=== PATIENT | female | born 1965 | race Caucasian/White ===

== ENCOUNTER → 2018-02-13 | Outpatient (CLI) | payer OTHER ==
[2014-08-07 10:35] VITALS: BMI 39.5
[~2018-02-13] MED LIST: ACE325 PO; AMOX-559 PO; BENZ200C15 PO; BUTA1CAP4 PO; CALCIUM; CLOT30SO6 RIGHT EAR; CYAN100015 PO; ELET40TA; FLUT16SP19 NS; GLUC-232 PO; GUAI120L3 PO; HYDR-385 PO; HYDR-389 PO; HYDR12.556 PO; HYDROCHLOROTHIAZIDE PO; LEVO100T95 PO; LEVO50TA80 PO; LEVO75TA68 PO; LOR5/325 PO; MAGN250T34 PO; METF-410 PO; MULT-1081 PO; NEOM10DR44 RIGHT EAR; OND4; OXYC-865 PO; PER PO; PRED20TA6 PO; PROM-110 PO; RIZA10TA PO; Return to work; VALA100059 PO; VITAMINS
--- NOTE | 2018-02-13 14:53 | RADIOLOGY IMAGING REPORT ---
FACILITY: [facility] - [place] PATIENT NAME: Ella Colindres : 1965 MR: [id number] V: [id number] EXAM DATE: ORDERING PHYSICIAN: NILSA HARRISON TECHNOLOGIST: Location: [facility] Patient: Ella Colindres : 1965 Visit/Account:[id number] Date of Sevice: 02/13/2018 MRI left knee Indication: Left knee injury Comparison: MRI left knee from 05/13/2015. Technique: Multiplanar, multisequence MRI examination is performed of the left knee without contrast. Findings: Medial compartment: There is a complex oblique superior surface tear at the posterior horn medial meniscus. Is also parti al tearing suggested at the posterior root. There is minimal partial-thickness chondral loss and irregularity mid weightbearing medial femoral co ndyle cartilage. Lateral compartment: No discrete tear of the lateral meniscus. The articular cartilage surfaces are unremarkable. Patellofemoral compartment: Mild chondral loss and irregularity median ridge patella cartilage. There is also partial-thickness c hondral loss of the inferior mid trochlear groove cartilage. Bones and marrow: No evidence of abnormal marrow edema. No focal bony lesions. No bony erosions or periostitis. Ligaments and tendons: ACL and PCL are intact. The extensor mechanism is intact. Minimal edema superficial and deep to the MCL suggests mild sprain. The iliotibial band, biceps femoris tendon, and the fibular collateral ligament is intact Mild tendinopathy proximal popliteus tendon. Soft tissues: Minimal fluid seen within the suprapatellar bursa. IMPRESSION: 1. Worsened appearance of a complex medial meniscal tear as described above. 2. Mild chondral loss patellofemoral and medial compartment cartilage. Report Dictated By: Ulises Marquez MD at 02/13/2018 2:45 PM Report E-Signed By: Ulises Marquez MD at 02/13/2018 2:50 PM WSN:[id number]
== END ==
LOC: MRI 00:54
PROVIDERS: ATTEND Orthopaedic Surgery
DX: S83.232A Complex tear of medial meniscus, current injury, left knee, initial encounter (principal); M94.8X8 Other specified disorders of cartilage, other site

== ENCOUNTER → 2018-03-01 | Outpatient (REF) ==
[2014-08-07 10:35] VITALS: BMI 39.5
[2018-03-01 09:31] LABS: LDL CHOLESTEROL 89 mg/dl
== END ==
DX: Z02.9 Encounter for administrative examinations, unspecified (principal)

== ENCOUNTER 2018-03-11 02:38 | Day surgery (SDC) | payer OTHER ==
[2014-08-07 10:35] VITALS: Ht 167.6 cm; Wt 119.7 kg
[~2018-03-11] VITALS: Ht 167.6 cm; Wt 119.7 kg
[~2018-03-11 02:38] MED LIST changes: -METF-410 PO; +METF-411 PO
[2018-03-11] MEDS ORDERED: MIDAZOLAM 2 MG/2 ML VIAL IVP PRN (11:25)
[2018-03-11] MEDS ORDERED: FAMOTIDINE 20 MG TAB PO ONE (11:25)
[2018-03-11] MEDS ORDERED: NORMOSOL R SOLN(*) 1000 ML BAG 1,000 ML IV PRN (11:25)
[2018-03-11] MEDS ORDERED: LIDOCAINE/SOD BICARB 8.4% SYR ID ONE (11:25)
[2018-03-11] MEDS ORDERED: CELECOXIB 200 MG CAP PO ONE (11:25)
[2018-03-11 12:31] VITALS: BP 122/91
[2018-03-11] MEDS: ceFAZolin(*) 2GM/D5W 50ML 50 ML IVPB ONE ×2 (12:35→15:15)
[2018-03-11] MEDS ORDERED: fentaNYL CITR 250 MCG/5 ML AMP ONE (13:38)
[2018-03-11] MEDS ORDERED: PROPOFOL EMUL(*) 10MG/ML 20 ML 20 ML ONE (13:39)
[2018-03-11] MEDS ORDERED: LIDOCAINE 2% IV 100 MG/5ML SYR ONE (13:39)
[2018-03-11] MEDS ORDERED: ROPIVACAINE 0.2% 20 ML VIAL ONE (15:05)
[2018-03-11] MEDS ORDERED: DEXAMETHASONE SOD 4 MG/ML VIAL ONE (15:18)
[2018-03-11] MEDS ORDERED: ONDANSETRON 4 MG/2 ML VIAL ONE (15:19)
[2018-03-11] MEDS ORDERED: fentaNYL CITR 100 MCG/2 ML AMP ONE (16:07)
[2018-03-11] MEDS ORDERED: PROMETHAZINE 25 MG/ML 1 ML AMP ONE (16:30)
[2018-03-11] MEDS ORDERED: APAP/HYDROCODONE 325/7.5 TAB ONE ×2 (17:23→17:59)
[2018-03-11 17:45] VITALS: BP 122/81
[2018-03-11 18:00] VITALS: BP 123/72
[2018-03-11] MEDS ORDERED: HYDR-389 PO (18:09)
[2018-03-11 18:15] VITALS: BP 111/74
[2018-03-11 18:23] VITALS: BP 114/45
[2018-03-11 18:25] VITALS: BP 109/71
--- NOTE | 2018-03-12 15:57 | OPERATIVE REPORT 1 ---
EVENT DATE: March 11, 2018 SURGEON: Timothy Martínez MD ANESTHESIOLOGIST: Ke Gonzalez MD ANESTHESIA: General. 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 POSTOPERATIVE DIAGNOSES Left knee complex tear of the mid body to posterior horn of medial meniscus including a superior radial tear flip fragment and horizontal component, chondromalacia grade II of the medial tibial plateau, chondromalacia low grade III of the medial femoral condyle, chondromalacia low grade III of the patella, and appropriate patellar tracking. PROCEDURE PERFORMED Left knee arthroscopy with partial medial meniscectomy, debridement of medial femoral condyle, medial tibial plateau, and patellar chondromalacia. SPECIMENS None. COMPLICATIONS None. BLOOD LOSS Minimal. DESCRIPTION OF OPERATION Patient received appropriate preoperative antibiotic. She was brought to the OR where Dr. Gonzalez performed general anesthesia. Left thigh tourniquet placed. Left lower extremity prepped and draped in usual sterile fashion. We did not use a tourniquet. A lateral portal was established at a previous portal scar and medial portal through the previous portal scar. In the medial compartment, noticed some general hyperemia throughout the gutters, but no loose bodies in the medial or lateral gutters, suprapatellar pouch. Medial compartment was entered. There was recurrent low grade III fissuring of several areas of the medial femoral condyle and now grade II chondromalacia of the medial tibial plateau. In the mid body, there was a horizontal tear extending posteriorly and a radial component extending anteriorly of the flipped fragment. This was debrided with biters, shaved until stable with hook probing. Chondromalacia was debrided well on both sides of the joint to a stable base. Patellofemoral compartment was entered. The previous debridement in the trochlea was noted, and this was stable. Patella showed some recurrent low grade III fissuring and flap tearing, and this was debrided medial facet and lateral facet. Lateral compartment showed no damage to the meniscus or cartilage. The notch was intact to the ACL and PCL. Instrumentation was removed. Port was closed subcutaneously with 4-0 Monocryl, followed by Steri- Strips. Injection of the port was done with ropivacaine, followed by a compressive dressing. Patient was extubated and taken to recovery in stable condition. Dressings can be changed in two days. She was given hydrocodone 7.5/325 mg #20 for pain. She will start protocol therapy. We will see her back next week in our clinic. VINAYAK
== END 2018-03-11 17:45 | disposition home or self-care (01) ==
LOC: OR 02:38
PROVIDERS: ATTEND Orthopaedic Surgery
DX: S83.242A Other tear of medial meniscus, current injury, left knee, initial encounter (principal); M94.262 Chondromalacia, left knee; G47.30 Sleep apnea, unspecified; E03.9 Hypothyroidism, unspecified; E66.01 Morbid (severe) obesity due to excess calories
CPT/HCPCS: 29881; J1100; J2001; J2405; J2550; J2704; J2795; J3010; J0690

== ENCOUNTER 2018-04-23 15:30 | Outpatient (RCR) | payer OTHER ==
[2014-08-07 10:35] VITALS: BMI 39.5
--- NOTE | 2018-03-13 18:11 | PT INITIAL EVALUATION ---
MEDICAL DIAGNOSIS: L medial meniscal repair for tear, debridement TREATMENT DIAGNOSIS: Same, DATE OF ONSET: 03/11/18 SUBJECTIVE: Ella Colindres presents to PT for L knee MMR, cartilage debridement after a fall at home in November 2017, injuring her L knee. She's had L knee scopes. Pain location is L medial knee and described as ache ( without Rx meds /10). Pain scale is 2 on a ten point pain scale. Pain is worse with ROM, ambulation TDWB and better with ice. PREVIOUS MEDICAL HISTORY: L knee scope 2014, 2002 uterine cancer, POS, thyroid disorder. OCCUPATION: [employer], [employer]. Lives in a trailer with her , no trouble with stairs or tub/shower per Ella. 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 OBJECTIVE: Posture: L knee flexed 25 degrees, TDWB crutches (no brace). ROM: A/PROM L knee 20/15 - 73/75 degrees. Strength: SLR 25 degree lag. Palpation: Painful L MCL, medial and lateral patellar borders< moderate edema. Special Tests: Hypomobile L patellofemoral joint glides. Mobility: Independent with extensor lag. Gait: Axillary crutches, TDWB gait foot flat to toe off L LE, step through pattern. Balance: NT today. Other Objective Findings: O2 on room air 87 - 94%, HR 65 to 66 BPM. Portals non- draining. ASSESSMENT: Ella Colindres presents with L knee acute inflammation, pain, reduced ROM, strength, function, altered gait and mobility two days post-op L medial meniscal repair, medial compartment and patellofemoral debridement. She did well with gentle mobilization, modalities, resulting in less pain. Short Term Goals/Patient's Goals 4 weeks: Ella ambulates short community distances TDWB, knee pain 12/15. 8 weeks: Ella has full AROM L knee, ambulates independently, walks her dogs safely. 12 weeks: Ella hikes with a walking stick, ambulates over uneven ground with normal balance reactions, no L knee pain. PLAN: Patient to be seen for Protocol L meniscal/debridement Range of Motion/ Stretching, Strengthening/condition, Ice/Heat, Manual Therapy, Neuromuscular Re- ed, Electrical Stim, Gait Trg/Balance Trg, Home Exercise Program 3x/Week for 2 weeks then 2x/week to 12 weeks Thank you for this referral. If you have any questions, comments, or concerns about this report or plan, please contact me at . [facility]
--- NOTE | 2018-04-23 16:20 | PT PLAN OF CARE ---
Physician: L knee pain, antalgic gait Patient is being seen: 1-3x/week Therapist: Mariposa Gamboa, PT Medical Diagnosis: L medial meniscal repair for tear, debridement Treatment Diagnosis: Same, Date of Onset: 03/11/18 Date of Initial Evaluation: 03/13/18 Date patient was last seen: 04/23/18 Number of treatments: 8 Number of cancellations/No shows: 4 INTERVENTIONS: L knee ROM, stretching, strengthening, muscle balancing, Manual Therapy, ice, e-stim, HEP GOALS/PATIENT'S GOAL: 4 weeks: Ella ambulates short community distances TDWB, knee pain 2/10. (met ) 8 weeks: Ella has full AROM L knee (met), ambulates independently (met), walks her dogs safely (not met- not walking dogs yet). 12 weeks: Ella hikes with a walking stick (not met), ambulates over uneven ground with normal balance reactions (met), no L knee pain (not met, up to 4/ 10 pain). Patient Compliance: Excellent Prognosis: Excellent Reasons for discontinuing therapy: S: Ella reports she only has medial patellar pain with ambulating on uneven ground. She's doing HEP. O: ROM: L knee AROM WNL. Gait: Normal gait on the level, normal balance reactions. Edema: Moderate lateral L knee edema intermittently. Strength: Normal eccentric L quad control descending 6" step. A/P: Ella Colindres has done well with her L knee rehabilitation. If you agree, I'll DC PT to HEP. Thank you. VINAYAK
== END 2018-04-23 18:00 | disposition home or self-care (01) ==
LOC: PT 15:30
PROVIDERS: ATTEND Orthopaedic Surgery
DX: S83.242A Other tear of medial meniscus, current injury, left knee, initial encounter (principal); M25.562 Pain in left knee; M94.262 Chondromalacia, left knee
CPT/HCPCS: 97161

== ENCOUNTER 2018-08-01 13:26 | Emergency (ER) | payer OTHER ==
[2014-08-07 10:35] VITALS: Wt 117.9 kg
[~2018-08-01 13:26] MED LIST changes: -METF-411 PO; +METF-450 PO
--- NOTE | 2018-08-01 13:45 | ER Report ---
History and Physical Time Seen By MD: 13:45 Hx. of Stated Complaint: NAUSEATED, BODY ACHES, SORE NECK. VOMITED LAST NIGHT. TAKING ZOFRAN, NOT HELPING. HURTS TO TAKE DEEP BREATHS. BEEN GOING ON SINCE SUN. HAD A FLU SHOT ON HPI/ROS 52-year-old female with flulike symptoms for the past 2-3 days. Received her influenza immunization 2 days ago. Symptoms worsened after that. Now also with a headache. The headache is not worse of life. No meningismus. She used to suffer from migraine headaches, and this headache is similar to previous migraine headaches. She normally has a prescription for Fioricet for her migraine headaches, but she currently does not have the medication. No abdominal pain. No chest pain or shortness of breath. She describes body aches, headache, sore throat, nausea. Remainder of the 14 system rev: Yes Allergies: Coded Allergies: NSAIDS (Non-Steroidal Anti-Inflamma (Verified Adverse Reaction, Mild, HEART RACES, GETS REALLY RED, NAUSEA, 08/01/18) DUE TO BARIATRIC SURG Home Meds Active Scripts Levothyroxine Sodium (SYNTHROID) 100 Mcg Tablet, 1 TAB PO QDAY, #30 TAB Prov:HARRIS GALEAS APRN GEAR GENERATOR SET UP OPERATOR-C 07/22/18 Hydrochlorothiazide (HYDROCHLOROTHIAZIDE) 12.5 Mg Capsule, 1 TAB PO QDAY PRN for swelling to legs for 30 Days, #30 CAPSULE 3 Refills Prov:HARRIS GALEAS APRN GEAR GENERATOR SET UP OPERATOR-C 03/01/17 Butalb/Acetaminophen/Caffeine (FIORICET 50-300-40 MG CAPSULE) 1 Each Capsule, 1- 2 EACH PO Q6H PRN for HEADACHE, #10 CAPSULE 0 Refills Prov:HARRIS GALEAS APRN GEAR GENERATOR SET UP OPERATOR-C 04/04/16 Reported Medications Metformin Hcl (METFORMIN HCL) 500 Mg Tablet, 1 TAB PO QDAY, TAB 03/04/18 Magnesium Oxide (MAGNESIUM) 250 Mg Tablet, 250 MG PO QDAY 05/26/15 Cyanocobalamin (Vitamin B-12) (VITAMIN B-12) 1,000 Mcg Tablet.er, 2500 MCG PO QDAY 05/26/15 Gluc 2KCL/Chondr/Jose E Hy/Hy Ac (GLUCOSAMINE & CHONDROITIN CAP) 1 Each Capsule, 1500 EACH PO QDAY, CAPSULE 05/26/15 Multivitamin (MULTI-DAY VITAMINS) 1 Each Tablet, 1 EACH PO DAILY 08/05/14 Discontinued Reported Medications Acetaminophen/Hydrocodone (HYDROCODON-ACETAMINOPH 7.5-325) 1 Each Ea, 1-2 EACH PO Q6H PRN for PAIN, EA 03/11/18 Hx Smoking: Yes (NONE SINCE 1989) Smoking Status: Former Smoker Exposure to Second Hand Smoke?: No Hx Substance Use Disorder: No Hx Alcohol Use: Yes Constitutional Vital Sign - Last 24 Hours 08/01/18 08/01/18 08/01/18 08/01/18 13:26 13:33 13:37 13:41 Temp 100.0 Pulse ??? 64 63 Resp 18 B/P (MAP) 120/81 120/81 (94) Pulse Ox 86 95 O2 Delivery Room Air 08/01/18 08/01/18 08/01/18 08/01/18 13:56 14:00 14:11 14:26 Pulse 56 57 61 B/P (MAP) 99/53 (68) Pulse Ox 94 94 94 08/01/18 08/01/18 08/01/18 08/01/18 14:30 14:41 14:56 15:00 Pulse 59 71 B/P (MAP) 106/57 (73) 107/50 (69) Pulse Ox 95 90 08/01/18 08/01/18 08/01/18 08/01/18 15:11 15:16 15:30 15:31 Pulse 72 79 65 B/P (MAP) 115/59 (77) Pulse Ox 92 91 93 08/01/18 08/01/18 08/01/18 15:46 16:00 16:01 Pulse 77 68 B/P (MAP) 107/54 (71) Pulse Ox 92 92 Physical Exam General Appearance: The patient is alert, has no immediate need for airway protection and no current signs of toxicity. Eyes: Pupils equal and round no injection. Respiratory: Chest is non tender, lungs are clear to auscultation. Cardiac: regular rate and rhythm, she has a mild systolic murmur Gastrointestinal: Abdomen is soft and non tender, no masses, bowel sounds normal. Neck: Neck is supple and non tender. Extremities have full range of motion and are non tender. Skin: No rashes or lesions. DIFFERENTIAL DIAGNOSIS: After history and physical exam differential diagnosis was considered for headache including but not limited to subarachnoid hemorrhage, migraine headache, tension headache and infectious causes such as meningitis, pharyngitis and sinusitis. Medical Decision Making Data Points Laboratory Hematology Test 08/01/18 13:41 08/01/18 14:17 08/01/18 15:25 Group A Streptococcus Screen Negative (NEGATIVE) Influenza Virus Type A (PCR) Negative (NEGATIVE) Influenza Virus Type B (PCR) Negative (NEGATIVE) Urine Color Yellow Urine Clarity Clear Urine pH 5.0 pH (4.8-9.5) Urine Specific [place] 1.019 Urine Protein Negative mg/dL (NEGATIVE) Urine Glucose (UA) Negative mg/dL (NEGATIVE) Urine Ketones 20 mg/dL (NEGATIVE) Urine Blood Negative (NEGATIVE) Urine Nitrite Negative (NEGATIVE) Urine Bilirubin Negative (NEGATIVE) Urine Urobilinogen 2.0 mg/dL (0.2-1.9) Urine Leukocyte Esterase Negative (NEGATIVE) Urine RBC <1 /HPF (0-2/HPF) Urine WBC 1 /HPF (0-5/HPF) Urine Squamous Epithelial Cells Many /LPF (</=FEW) Urine Bacteria Few /HPF (NONE-FEW) Urine Mucus Few /HPF (NONE-FEW) Chemistry Test 08/01/18 13:41 08/01/18 14:17 08/01/18 15:25 Group A Streptococcus Screen Negative (NEGATIVE) Influenza Virus Type A (PCR) Negative (NEGATIVE) Influenza Virus Type B (PCR) Negative (NEGATIVE) Urine Color Yellow Urine Clarity Clear Urine pH 5.0 pH (4.8-9.5) Urine Specific [place] 1.019 Urine Protein Negative mg/dL (NEGATIVE) Urine Glucose (UA) Negative mg/dL (NEGATIVE) Urine Ketones 20 mg/dL (NEGATIVE) Urine Blood Negative (NEGATIVE) Urine Nitrite Negative (NEGATIVE) Urine Bilirubin Negative (NEGATIVE) Urine Urobilinogen 2.0 mg/dL (0.2-1.9) Urine Leukocyte Esterase Negative (NEGATIVE) Urine RBC <1 /HPF (0-2/HPF) Urine WBC 1 /HPF (0-5/HPF) Urine Squamous Epithelial Cells Many /LPF (</=FEW) Urine Bacteria Few /HPF (NONE-FEW) Urine Mucus Few /HPF (NONE-FEW) Urinalysis Test 08/01/18 15:25 Urine Color Yellow Urine Clarity Clear Urine pH 5.0 pH (4.8-9.5) Urine Specific [place] 1.019 Urine Protein Negative mg/dL (NEGATIVE) Urine Glucose (UA) Negative mg/dL (NEGATIVE) Urine Ketones 20 mg/dL (NEGATIVE) Urine Blood Negative (NEGATIVE) Urine Nitrite Negative (NEGATIVE) Urine Bilirubin Negative (NEGATIVE) Urine Urobilinogen 2.0 mg/dL (0.2-1.9) Urine Leukocyte Esterase Negative (NEGATIVE) Urine RBC <1 /HPF (0-2/HPF) Urine WBC 1 /HPF (0-5/HPF) Urine Squamous Epithelial Cells Many /LPF (</=FEW) Urine Bacteria Few /HPF (NONE-FEW) Urine Mucus Few /HPF (NONE-FEW) ED Course/Re-evaluation ED Course Uncomplicated migraine headache provoked by either the influenza vaccine or a viral upper respiratory infection. She received 1 L normal saline, Reglan, and Fioricet and influenza and rapid strep were negative. She feels back to her baseline, and is asking to go home and continue supportive care. Decision to Disposition Date: Aug 01, 2018 Decision to Disposition Time: 17:22 Depart Departure Latest Vital Signs Vital Signs Date Time Temp Pulse Resp B/P (MAP) Pulse Ox O2 Delivery O2 Flow Rate FiO2 08/01/18 16:01 68 92 08/01/18 16:00 107/54 (71) 08/01/18 13:33 100.0 18 Room Air Impression: Primary Impression: Migraine headache Condition: Improved Disposition: HOME OR SELF-CARE Referrals: HARRIS GALEAS APRN GEAR GENERATOR SET UP OPERATOR-C (PCP) Patient Instructions: Migraine Headache (ED) Problem Qualifiers Primary Impression: Migraine headache Migraine type: without aura Status migrainosus presence: without status migrainosus Intractability: not intractable Qualified Codes: G43.009 - Migraine without aura, not intractable, without status migrainosus JUDAH IVERSON MD Aug 01, 2018 13:45
[2018-08-01] MEDS ORDERED: METOCLOPRAMIDE 10 MG/2 ML SDV IVP ONE (14:30)
[2018-08-01] MEDS ORDERED: ACETAMINOPHEN 500 MG TAB PO ONE (14:30)
[2018-08-01] MEDS ORDERED: NS(*) 0.9% 1000 ML BAG 1,000 ML IV ONE (14:30)
[2018-08-01] MEDS ORDERED: ACETA/BUTAL/CAFF 325/50/40 TAB PO ONE (16:05)
[2018-08-01 17:00] VITALS: BP 98/51
== END 2018-08-01 17:25 | disposition home or self-care (01) ==
LOC: ER 13:46
DX: G43.009 Migraine without aura, not intractable, without status migrainosus (principal)
CPT/HCPCS: 81001; 87081; 87502; 87880; 96361; 96374; 99284; J2765; J7030

== ENCOUNTER → 2018-08-08 | Outpatient (CLI) | payer OTHER ==
[2014-08-07 10:35] VITALS: BMI 39.5
[~2018-08-08] MED LIST changes: +BUTA1TAB14 PO; +LEVO-3 PO
== END ==
LOC: LAB 15:37
PROVIDERS: ATTEND Nurse Practitioner Family
DX: E03.9 Hypothyroidism, unspecified (principal)
CPT/HCPCS: 36415; 84443

== ENCOUNTER → 2018-08-14 | Outpatient (CLI) | payer OTHER ==
[2014-08-07 10:35] VITALS: BMI 39.5
--- NOTE | 2018-08-14 09:07 | RADIOLOGY IMAGING REPORT ---
FACILITY: [facility] [place] PATIENT NAME: KIAN JUAREZ : [id number] MR: [id number] V: [id number] EXAM DATE: ORDERING PHYSICIAN: HARRIS GALEAS TECHNOLOGIST: Gabi Daniel PROCEDURE:BILATERAL DIGITAL SCREENING MAMMOGRAM WITH CAD ASSISTED INTERPRETATION & 3D TOMOSYNTHESIS COMPARISON:Prior mammogram 09/07/11. INDICATIONS:SCREENING FINDINGS: A small amount of fibroglandular tissue is seen throughout the breasts. The parenchymal pattern has remained stable allowing for difference in mammographic technique & patient positioning. There is no evidence of malignant appearing mass, malignant appearing calcifications or other secondary sign of malignancy in either breast. DIAGNOSTIC CATEGORY 1--NEGATIVE. RECOMMENDATIONS: ROUTINE MAMMOGRAM AND CLINICAL EVALUATION. IMPRESSION: BIRADS 1: Negative. No significant abnormality is seen. Dictated by: Kasey Corrales M.D. on 08/14/2018 at 8:45 Transcribed by: CIELO on 08/14/2018 at 8:54 Approved by: Kasey Corrales M.D. on 08/14/2018 at 9:06 [facility]
== END ==
LOC: MAMO 02:24
PROVIDERS: ATTEND Nurse Practitioner Family
DX: Z12.31 Encounter for screening mammogram for malignant neoplasm of breast (principal)
CPT/HCPCS: 77063; 77067